=== PATIENT | female | born 1955 | race Caucasian/White ===

== ENCOUNTER 2021-08-26 14:09 | Outpatient (RCR) | payer MEDICARE, OTHER, SELFPAY ==
--- OUTSIDE RECORDS SUMMARY | 2021-08-20 09:29 | XMS_ITS | Continuity of Care Document ---
:1955 Author Care Team Providers Name Role Phone MD Xiomara Castellon Primary Care Physician CONSUELO Meyer Attending Physician Allergies, Adverse Reactions, Alerts Allergen Type Severity Reaction Last Updated Verified Status Gentamicins Allergy Unknown January Yes Active 2020 Social History Smoking Status Status Start Date End Date Date of Observat ion Never smoked tobacco February 122020 (finding) 9:48am Additional Data Assigned Sex Female Medications Medication Status Dose Units Route Directions Qty Days Start End Ins tructions Date Date Albuterol Active 1.25 MG NEB Every 4 25 Sulfate Hours as (Albuterol needed Neb) 1.25 Mg/3 Ml NEB Estradiol Active 10 MCG PV Twice 24 Hemihydrate Weekly (Vagifem 10 Mcg) 10 Mcg TAB Fexofenadine Active 60 MG PO Twice A Day Hcl (Linda Allergy) 60 Mg TAB Fluticasone Active 1 SPRAY EACH Daily 1 Propionate NOSTR (Nasal) (Flonase Allergy Relief) 50 Mcg/Act SPR Fosomax Active Mepolizumab Active 100 MG SC (Nucala) 100 Mg INJ Montelukast Active 10 MG PO Bedtime 30 Sodium (Singulair) 10 Mg TAB Olopatadine Active 0.7 % OP Daily Hcl (Pazeo) 0.7 % LISA Salmeterol Active 2 PUFF INH Twice A Day 1 Xinafoate/Flu ticasone (Advair Hfa 115/21) 115 Mcg/21 Mcg INH Zolmitriptan Active Unknow PO As Needed 6 O NE TAB AT (Zomig) n Dose ONSET OF Unknown HEADACHE, MA Y Strength TAB REPEAT ONCE IN 2 HOURS IF NEEDED Salmeterol Discontin 2 PUFF INH Twice A Day 1 Decem b Xinafoate/Flu ued er ticasone , (Advair Hfa 2020 230/21) 1 9:13am Each INHA Immunizations Immunization Event Date Not Given Dose Yarn Twister Lot Vac cine Reason Number Number Informatio n Statement (VIS) Deta il COVID-19 Pfizer March 30 PFIZER-BIO [id number] 2020 COVID-19 Pfizer May 09, PFIZER-BIONTECH [id number] 2020 COVID- Pfizer December 24, 3 [id number] 2020 Herpes Zoster October 13, 2016 Influenza December 28, 2001 Influenza December 26, 2 2003 Influenza December 24, 2003 Influenza December 17, 4 2004 Influenza December 09, 5 2005 Influenza November 02, 2008 Influenza February [id number] Influenza December 03, 2009 Influenza December 21, 2010 Influenza December 28, 2011 Influenza December 06, 2012 Influenza December 07, 2013 Influenza December 19, 2014 Influenza December 08, 2016 Influenza December 03, 2016 Influenza December 13, 2016 Influenza November 13, 2018 Influenza November 27, 2019 Influenza November 152020 Prevnar Adult September 21, 2018 Pneumovax Adult December 282009 Shingrix October 12, 2018 Shingrix December 31, 2019 Tetanus/Diptheri October 26, 1 a 2004 Tdap September 14, (adolescent/adul 2011 t) Tdap October 29 (adolescent/adul 2020 t) Insurance Providers Guarantor Evelio Sofia Address [address] [place], [place] [id number] Contact Info. Home Phone: -CELL Payer Policy Id Coverage Id Subscriber's Subscriber Id Effective E xpiration Name Date Date Medicare [id number] Evelio Sofia [employer] [id number] Evelio Sofia Solution Plan Encounters Encounter Location(s) Arrival/Admit Date Discharge/Depart Date Provider(s) Registered [place] July 27, 2021 Naina Meyer [facility] 7:06am A WHE[employer]
[2021-08-26 14:35] VITALS: BP 117/76; PULSE 78; RESP 16; TEMP 35.9; O2SAT 95
== END 2021-08-26 23:59 | disposition home or self-care (01) ==
LOC: CCIC 14:09
PROVIDERS: PCP Family Medicine; Visit Provider Clinical Nurse Specialist
DX: J45.909 Unspecified asthma, uncomplicated (principal)
CPT/HCPCS: 96372; J2182

== ENCOUNTER 2021-09-24 13:10 | Outpatient (RCR) | payer MEDICARE, OTHER, SELFPAY ==
--- NOTE | 2021-09-20 15:38 | ONC.NURNOTE ---
Authorization: User: Suzi [email or web address] Date: 05/21/21 07:31 Type: Eligibility Determination Note... Request received from [facility] for prior authorization of Nucala. Patient carries Medicare as primary insurance. Per CMS.gov no prior authorization is required for Nucala. Services are based on medical necessity and follows Medicare guidelines.
[2021-09-24 13:33] VITALS: BP 122/69; PULSE 73; RESP 16; TEMP 36.3; O2SAT 97
== END 2021-09-26 23:59 | disposition home or self-care (01) ==
LOC: CCIC 13:10
PROVIDERS: PCP Family Medicine; Visit Provider Clinical Nurse Specialist
DX: J45.909 Unspecified asthma, uncomplicated (principal)
CPT/HCPCS: 96372; J2182

== ENCOUNTER 2022-04-15 13:00 | Outpatient (RCR) | payer MEDICARE, SELFPAY, OTHER ==
[2021-10-25 14:41] VITALS: BP 113/72; PULSE 90; RESP 16; TEMP 36.1; O2SAT 90
[2021-11-23 13:13] VITALS: BP 115/57; RESP 16; TEMP 36.2; O2SAT 96
[2021-12-21 14:14] VITALS: BP 115/66; PULSE 66; RESP 16; TEMP 36.6; O2SAT 97
[2022-01-18 13:55] VITALS: BP 117/72; PULSE 87; RESP 16; TEMP 36.3; O2SAT 97
[2022-02-15 14:31] VITALS: BP 116/70; PULSE 87; RESP 18; TEMP 36.3; O2SAT 96
--- NOTE | 2022-03-02 11:31 | URNOTE ---
Request received for authorization for Linda ([id number]). Prior authorization is not required as services are based on medical necessity and follow Medicare guidelines.
--- NOTE | 2022-03-10 14:19 | URNOTE ---
Pt has new insurance through [facility] as of 02/27/22. Per Ward at [facility], prior authorization is not required for Nucala ([id number]). Call Ref #[id number]
[2022-03-14 09:05] VITALS: BP 131/65; PULSE 75; RESP 16; TEMP 36.2; O2SAT 99
--- NOTE | 2022-03-14 09:58 | PC.NURSE ---
Pt here today for Nucala injection. Pt is on vacation in exactly 4 weeks so she will get her next dose on 04/15/2022 (as opposed to 04/11/2022). Per pt request, prescribing MD office contacted and they ok'd this plan. Kenisha Meyer APRN also notified and supports this plan.
[2022-04-15 13:38] VITALS: BP 112/61; PULSE 76; RESP 18; O2SAT 95
--- NOTE | 2022-04-15 13:47 | ONC.NURNOTE ---
Pt received #6/6 Nucala today per order from 11/18/21 for 6 doses. Pt contacting her ordering provider to send updated orders. No appts scheduled.
--- NOTE | 2022-04-18 08:54 | PC.NURSE ---
Received a call from MARIELY Rubio at Dr. Bolton's office stating OK to go 5 weeks (instead of 4) between next two (April & May) Nucala injections due to travel schedule. RN noted this and asked for a written order to be faxed. MARIELY Rubio will also instruct Jenn to call to schedule. Nothing is scheduled at this time.
== END 2022-04-23 23:59 | disposition home or self-care (01) ==
LOC: CCIC 13:00
PROVIDERS: PCP Family Medicine; Referring Provider Family Medicine; Visit Provider Clinical Nurse Specialist
DX: J45.909 Unspecified asthma, uncomplicated (principal)
CPT/HCPCS: 96372; J2182